=== PATIENT | female | born 1955 | race Caucasian/White ===

== ENCOUNTER → 2017-07-20 | Outpatient (CLI) | payer OTHER | LOC: FIMAGING 08:39 | PROVIDERS: ATTEND Internal Medicine | DX: Z12.31 Encounter for screening mammogram for malignant neoplasm of breast (principal); Z80.3 Family history of malignant neoplasm of breast | CPT/HCPCS: G0202 ==

== ENCOUNTER 2018-02-15 09:13 | Emergency (ER) | payer OTHER ==
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
[2018-02-15] MEDS ORDERED: CYCLOBENZAPRINE 10 MG TAB PO ONE (10:13)
[2018-02-15] MEDS ORDERED: OXYCODONE/APAP 5/325 TAB PO ONE (10:13)
[2018-02-15] MEDS ORDERED: IOPAMIDOL (ISOVUE-300) 100 ML BTL ONE (11:04)
[2018-02-15 13:30] VITALS: BP 162/82
== END 2018-02-15 13:30 | disposition home or self-care (01) ==
LOC: EDUNIT#
DX: S22.22XA Fracture of body of sternum, initial encounter for closed fracture (principal); S42.034A Nondisplaced fracture of lateral end of right clavicle, initial encounter for closed fracture; V43.62XA Car passenger injured in collision with other type car in traffic accident, initial encounter; Y92.410 Unspecified street and highway as the place of occurrence of the external cause; Y99.8 Other external cause status; Y93.89 Activity, other specified
CPT/HCPCS: 82947-QW; Q9967

== ENCOUNTER → 2018-02-24 | Outpatient (CLI) | payer OTHER | LOC: FIMAGING 08:37 | PROVIDERS: ATTEND Surgery | DX: S22.20XD Unspecified fracture of sternum, subsequent encounter for fracture with routine healing (principal); J98.4 Other disorders of lung ==

== ENCOUNTER → 2018-03-01 | Outpatient (CLI) | payer OTHER | LOC: BMCIMAGING 15:25 | PROVIDERS: ATTEND Internal Medicine | DX: M54.2 Cervicalgia (principal); R51 Headache; M47.892 Other spondylosis, cervical region ==

== ENCOUNTER → 2018-07-21 | Outpatient (CLI) | payer OTHER | LOC: FIMAGING 08:48 | PROVIDERS: ATTEND Internal Medicine | DX: Z12.31 Encounter for screening mammogram for malignant neoplasm of breast (principal) ==